=== PATIENT | female | born 1955 | race Hispanic/Latino ===

== ENCOUNTER 2018-04-27 20:55 | Emergency (ER) | payer SELFPAY ==
[~2018-04-27] VITALS: Ht 160 cm; Wt 108.9 kg
[~2018-04-27 20:55] MED LIST: LEVAQUIN500 MG PO; LOSARTAN-HCTZ1 EAC2 PO; TRAMADOL-ACETAMI1 EA PO; VIT D2 PO
--- NOTE | 2018-04-27 22:11 | Diagnostic Imaging Report ---
EXAM: HAND 3+ VIEWS RIGHT AP, lateral and oblique, WRIST COMPLETE RIGHT, AP, lateral and oblique INDICATION: Fall in parking lot, posterior wrist pain with swelling, right lateral hand pain COMPARISON: None FINDINGS: BONES: Acute, intra-articular impaction type fracture of the distal radius with ventral displacement of the distal fracture fragment. Resulting ulnar plus variance. JOINTS: Carpal bones remain in alignment with the distal radial fragment. SOFT TISSUES: Soft tissue swelling of the wrist. IMPRESSION: Acute, intra-articular impaction type fracture of the distal radius with ventral displacement of the distal fracture fragment. No acute fracture of the hand. Signed by: Dr. Marisela Masters M.D. on 04/27/2018 10:07 PM
[2018-04-27] MEDS ORDERED: ONDANSETRON HCL INJ 2 MG/ML VIAL IV STA (22:56)
[2018-04-27] MEDS ORDERED: LIDOCAINE 1% 5ML-MPF INJ ONE (23:00)
[2018-04-27] MEDS ORDERED: HYDROCODONE/APAP 5MG-325MG TAB PO ONE (23:00)
[2018-04-27] MEDS ORDERED: ONDANSETRON HCL 4 MG ORAL DISINTEGRATING TAB PO ONE (23:15)
--- NOTE | 2018-04-28 00:33 | Diagnostic Imaging Report ---
EXAM: WRIST COMPLETE RIGHT, AP, lateral and oblique INDICATION: Post reduction of right radial fracture COMPARISON: Right wrist x-ray April 27, 2018 FINDINGS: BONES: Interval reduction of the impaction type intra-articular fracture of the distal radius with decreased volar displacement of the distal fracture fragment. JOINTS: No malalignment. SOFT TISSUES: Interval splint placement. IMPRESSION: Post reduction and splint placement for the right distal radius fracture with improved alignment. Signed by: Dr. Marisela Masters M.D. on 04/28/2018 12:30 AM
[2018-04-28] MEDS ORDERED: MOTRIN200 MG PO (00:50)
[2018-04-28] MEDS ORDERED: TYLENOL WITH C1 EACH PO (00:51)
[2018-04-28 01:04] VITALS: BP 122/67
== END 2018-04-28 01:24 | disposition home or self-care (01) ==
LOC: ER 20:55
DX: S52.591A Other fractures of lower end of right radius, initial encounter for closed fracture (principal); W01.0XXA Fall on same level from slipping, tripping and stumbling without subsequent striking against object, initial encounter; Y92.481 Parking lot as the place of occurrence of the external cause
CPT/HCPCS: 29125; 73110 ×2; 73130; 99283; J2405